=== PATIENT | female | born 1970 | race Caucasian/White ===

== ENCOUNTER → 2019-01-31 12:09 | Outpatient (CLI) | payer OTHER, MEDICAID, SELFPAY ==
--- NOTE | 2019-01-31 12:12 | DI.NM.S_ITS ---
PROCEDURE: NM BONE SCAM MULTIPLE AREAS RADIOPHARMACEUTICAL: 18.9 mCi Tc-99m MDP IV. INDICATIONS: Left rib chest wall pain TECHNIQUE: Multiple delayed bone scintigrams of the chest were obtained approximately 3 hours after intravenous injection of Tc-99m MDP. COMPARISON: None. FINDINGS: No regions of increased radiotracer uptake within the ribs, nor thoracic spine. Sternotomy per uptake is within normal limits. Kidneys are normally positioned. IMPRESSION: Negative bone scan of the chest. Dictated by: Jayro Corley M.D. on 01/31/2019 at 16:37 Approved by: Jayro Corley M.D. on 01/31/2019 at 16:39
== END ==
PROVIDERS: PCP Physician Assistant Medical; Visit Provider Physical Medicine & Rehabilitation
DX: R07.89 Other chest pain (principal); R07.81 Pleurodynia; G58.8 Other specified mononeuropathies; G89.29 Other chronic pain; M47.24 Other spondylosis with radiculopathy, thoracic region; M54.6 Pain in thoracic spine; M99.08 Segmental and somatic dysfunction of rib cage
CPT/HCPCS: 78305; A9503

== ENCOUNTER 2019-02-28 08:59 | Outpatient (CLI) | payer OTHER, MEDICAID, SELFPAY ==
[2019-02-28] VITALS (8 sets, daily range): BP systolic 104–124; BP diastolic 63–74; PULSE 58–72; RESP 14–18; TEMP 36.8; O2SAT 97–100
--- NOTE | 2019-02-28 09:00 | DI.RAD.S_ITS ---
PROCEDURE: PAIN C/T TRANFORAMINAL INJECT INDICATIONS: RADICULOPATHY FINDINGS: Fluoroscopic spot filming was performed to verify placement of spinal needles at the left T10-T11 level, as labeled on the films. Appropriate location(s) of the needle tip(s) was confirmed by injection of iodinated contrast. IMPRESSION: Left T10-T11 needle tip localization for transforaminal epidural steroid injection. Dictated by: Dallas Mancera M.D. on 02/28/2019 at 11:53 Approved by: Dallas Mancera M.D. on 02/28/2019 at 11:54
[2019-02-28] MEDS: MIDAZOLAM 5 MG/5 ML VIAL IV (09:55)
[2019-02-28] MEDS: fentaNYL 100 MCG/2 ML INJ 50 MCG IV (09:58)
[2019-02-28] MEDS: IOPAMIDOL 15 ML VIAL 3 ML INJ (10:03)
[2019-02-28] MEDS: DEXAMETHASONE 10 MG/ML VIAL 20 MG INJ (10:03)
[2019-02-28] MEDS: LIDOCAINE 1% 20 ML INJ 5 ML INJ (10:03)
--- NOTE | 2019-02-28 10:08 | PC.NURSE ---
ASSISTING PT OFF TABLE AND TRANSPORTING TO POST PROC AREA IN STABLE CONDITION
--- NOTE | 2019-02-28 10:15 | P.PCN_ITS ---
Procedures Date/Time Date of procedure: 02/28/19 Time of procedure: 10:13 General Procedure description: PREOP DIAGNOSIS 1. FORMAINAL STENOSIS WITH LE SYMPTOMS, POST OP DIAGNOSIS 1. FORMAINAL STENOSIS WITH LE SYMPTOMS, PROCEDURES 1. FLUOROSCOPICALLY GUIDED CONTRAST CONTROLLED TRANSFORAMINAL EPIDURAL STEROID INJECTION - Left T10/T11 TFESI PHYSICIAN: Ricki Guadalupe, DO INDICATIONS Karon is referred by PAC Utter for treatment of Foraminal Stenosis with left thoracic Symptoms FINDINGS Foraminal Nerve Root Compression secondary to disc disease and facet hypertrophy DESCRIPTION OF PROCEDURE Following denial of allergy and review of potential side effects and complications, including, but not necessarily limited to, infection, allergic reaction, local tissue breakdown, stroke, temporary or permanent nerve injury, paralysis, and possible , the patient indicated that the patient understood and agreed to proceed. An informed consent document was signed by the patient, witnessed by a nurse, and placed in the patient's chart. Additionally, other treatment options including medications, modalities, and physical therapy were reviewed with the patient. After review of previous anaesthesic history and IV conscious sedation the patient was deemed safe to proceed with todays procedure with IV conscious sedation as ASA class II designation. Safety time-out was performed to confirm patient ID, procedure to be performed and site of procedure. IV sedation was accomplished with a combination of 3mg of Versed of 50mcg Fentanyl was administered by the RN after DO order, titrated to patient comfort during the course of the procedure while the patient remained responsive to all verbal commands In the prone position following sterile prep and drape of the lumbar region, the left T10/T11 posterior neuroforamen was identified fluoroscopically. The skin was anesthetized via a 25-gauge 1.5-inch needle with 1% lidocaine solution. At this point, a 25-gauge 3.5-inch spinal needle was atraumatically introduced and advanced under fluoroscopic guidance through the posterior left T10/T11 neuroforamen to approximately the anterior aspect of the canal. Depth was confirmed on lateral view. Following negative aspiration, injection of approximately 1.5 cc of Isovue 200 under live fluoroscopy in the AP view confirmed excellent flow along the nerve root, into the epidural space without vascular or intrathecal uptake observed Radiological data, including multiple fluoroscopic views reveal the needle placement in the left T10/T11 posterior neuroforamen. Subsequent views show flow of contrast material flowing superiorly and inferiorly along the nerve root confirming epidural flow. Subsequently, a test dose of 1.5 cc of 1% lidocaine solution was administered and patient was observed for signs or symptoms of complications, including abdominal pain, shortness of breath, bilateral upper or lower extremity weakness, nausea and vomiting, prior to steroid injection. At this point, a total of 2cc or 20mg of dexamethasone was injected without incident. The procedure tolerated the procedure well without signs or symptoms of complications prior to transfer to the recovery area continued monitoring without incident.The patient was then transferred to the recovery area where they were observed for an appropriate time after the injection. The patient reported a VAS score of 7 prior to the procedure and a post- procedure VAS of 0. Total Fluoroscopy Time: 17.3 seconds Total Conscious Sedation Time: 24min POST OP INSTRUCTIONS The patient was provided a Pain Log to continue to record their response to the target-specific procedure prior to follow-up visit with their referring physician. Additionally, specific post-injection care instructions and a contact number to our office were provided if concerns arise regarding possible complications associated with the procedure are suspected. Ricki Guadalupe DO Complications: none
--- NOTE | 2019-02-28 11:01 | PC.NURSE ---
pt returned from procedure awake and alert, able to move from W/C to chair with standby assist. Resumed monitoring from Kasey HOLLIDAY.
== END 2019-02-28 10:55 ==
LOC: RAD 08:59
PROVIDERS: PCP Physician Assistant Medical; Visit Provider Physical Medicine & Rehabilitation
DX: M48.04 Spinal stenosis, thoracic region (principal); M51.14 Intervertebral disc disorders with radiculopathy, thoracic region; M47.24 Other spondylosis with radiculopathy, thoracic region; G58.8 Other specified mononeuropathies; G89.29 Other chronic pain
CPT/HCPCS: 64479; 99152; J1100; J2250; J3010

== ENCOUNTER 2019-07-19 10:25 | Outpatient (CLI) | payer OTHER, MEDICAID, SELFPAY ==
[2019-07-19] VITALS (7 sets, daily range): BP systolic 104–124; BP diastolic 63–76; PULSE 59–65; RESP 16; TEMP 36.9; O2SAT 98–100
--- NOTE | 2019-07-19 10:27 | DI.RAD.S_ITS ---
PROCEDURE: PAIN C/T TRANFORAMINAL INJECT INDICATIONS: SPONDYLOSIS FINDINGS: Fluoroscopic spot filming was performed to verify placement of spinal needles at the T10-T11 level(s), as labeled on the films. Appropriate location(s) of the needle tip(s) was confirmed by injection of iodinated contrast. IMPRESSION: Fluoroscopy for pain management. Dictated by: Jaimee Katz M.D. on 07/19/2019 at 12:56 Approved by: Jaimee Katz M.D. on 07/19/2019 at 12:57
[2019-07-19] MEDS: MIDAZOLAM 5 MG/5 ML VIAL IV (11:24)
[2019-07-19] MEDS: fentaNYL 100 MCG/2 ML INJ 50 MCG IV (11:24)
[2019-07-19] MEDS: DEXAMETHASONE 10 MG/ML VIAL 30 MG INJ (11:31)
[2019-07-19] MEDS: BUPIVACAINE 0.25% (PF) VIAL 2 ML INJ (11:31)
[2019-07-19] MEDS: IOPAMIDOL 15 ML VIAL 3 ML INJ (11:31)
--- NOTE | 2019-07-19 11:34 | PC.NURSE ---
ASSISTING PT OFF TABLE AND TRANSPORTING TO POST PROC AREA IN STABLE CONDITION
--- NOTE | 2019-07-19 11:39 | P.PCN_ITS ---
Procedures Date/Time Date of procedure: 07/19/19 Time of procedure: 11:39 General Procedure description: Procedure description: PREOP DIAGNOSIS 1. FORMAINAL STENOSIS WITH LE SYMPTOMS, POST OP DIAGNOSIS 1. FORMAINAL STENOSIS WITH LE SYMPTOMS, PROCEDURES 1. FLUOROSCOPICALLY GUIDED CONTRAST CONTROLLED TRANSFORAMINAL EPIDURAL STEROID INJECTION - Left T10/T11 TFESI PHYSICIAN: Ricki Guadalupe, DO INDICATIONS Karon is referred by PAC Utter for treatment of Foraminal Stenosis with left thoracic radiculopathy FINDINGS Foraminal Nerve Root Compression secondary to disc disease and facet hypertrophy DESCRIPTION OF PROCEDURE Following denial of allergy and review of potential side effects and complications, including, but not necessarily limited to, infection, allergic reaction, local tissue breakdown, stroke, temporary or permanent nerve injury, paralysis, and possible , the patient indicated that the patient understood and agreed to proceed. An informed consent document was signed by the patient, witnessed by a nurse, and placed in the patient's chart. Additionally, other treatment options including medications, modalities, and physical therapy were reviewed with the patient. After review of previous anaesthesic history and IV conscious sedation the patient was deemed safe to proceed with todays procedure with IV conscious sedation as ASA class II designation. Safety time-out was performed to confirm patient ID, procedure to be performed and site of procedure. IV sedation was accomplished with a combination of 2mg of Versed of 50mcg Fentanyl was administered by the RN after DO order, titrated to patient comfort during the course of the procedure while the patient remained responsive to all verbal commands In the prone position following sterile prep and drape of the lumbar region, the left T10/T11 posterior neuroforamen was identified fluoroscopically. The skin was anesthetized via a 25-gauge 1.5-inch needle with 1% lidocaine solution. At this point, a 25-gauge 3.5-inch spinal needle was atraumatically introduced and advanced under fluoroscopic guidance through the posterior left T10/T11 neuroforamen to approximately the anterior aspect of the canal. Depth was confirmed on lateral view. Following negative aspiration, injection of approximately 1.5 cc of Isovue 200 under live fluoroscopy in the AP view confirmed excellent flow along the nerve root, into the epidural space without vascular or intrathecal uptake observed Radiological data, including multiple fluoroscopic views reveal the needle placement in the left T10/T11 posterior neuroforamen. Subsequent views show flow of contrast material flowing superiorly and inferiorly along the nerve root confirming epidural flow. Subsequently, a test dose of 1.5 cc of 1% lidocaine solution was administered and patient was observed for signs or symptoms of complications, including abdominal pain, shortness of breath, bilateral upper or lower extremity weakness, nausea and vomiting, prior to steroid injection. At this point, a total of 3cc or 30mg of dexamethasone was injected without incident. The procedure tolerated the procedure well without signs or symptoms of complications prior to transfer to the recovery area continued monitoring without incident.The patient was then transferred to the recovery area where they were observed for an appropriate time after the injection. The patient reported a VAS score of 7 prior to the procedure and a post- procedure VAS of 0. Total Fluoroscopy Time: 17.3 seconds Total Conscious Sedation Time: 24min POST OP INSTRUCTIONS The patient was provided a Pain Log to continue to record their response to the target-specific procedure prior to follow-up visit with their referring physician. Additionally, specific post-injection care instructions and a contact number to our office were provided if concerns arise regarding possible complications associated with the procedure are suspected. Ricki Guadalupe DO Complications: none Complications: none
--- NOTE | 2019-07-19 11:58 | PC.NURSE ---
Patient returned via w/c post procedure. Patient is alert ahnd able to gety from w/c nto chair with standby assist. monitoring resumed by MG Cramer
== END 2019-07-19 12:01 ==
LOC: RAD 10:26
PROVIDERS: PCP Physician Assistant Medical; Visit Provider Physical Medicine & Rehabilitation
DX: M48.04 Spinal stenosis, thoracic region (principal); M51.14 Intervertebral disc disorders with radiculopathy, thoracic region; M47.24 Other spondylosis with radiculopathy, thoracic region
CPT/HCPCS: 64479; 99152; J1100; J2250; J3010

== ENCOUNTER → 2019-09-12 13:18 | Outpatient (CLI) | payer OTHER, MEDICAID, SELFPAY ==
--- NOTE | 2019-09-12 | DI.US.S_ITS ---
PROCEDURE: US SOFT TISSUE HEAD AND NECK INDICATIONS: LOCALIZED SWELLING, MASS, AND LUMP, NECK TECHNIQUE: Real-time scanning was performed of the neck region of interest, with image documentation. COMPARISON: None. FINDINGS: Morphologically normal appearing right neck lymph node otherwise no fluid collection or mass is seen. Normal appearance of the right submandibular gland which is over the region of concern. IMPRESSION: No abnormal mass or fluid collections visualized. Dictated by: Naif STOKES Interpreted: Logan Tavarez MD on 09/12/2019 at 14:58 Approved by: Logan Tavarez M.D. on 09/13/2019 at 11:27
--- NOTE | 2019-10-31 08:54 | ONC.MSW ---
Description: Initial Referral Navigation Activity: RN URGENT CARE reviewed referral for urgency/acuity, forwarded on to scheduling for next available initial consult time.
== END ==
PROVIDERS: PCP Physician Assistant Medical; Visit Provider Family Medicine
DX: R22.1 Localized swelling, mass and lump, neck (principal)
CPT/HCPCS: 76536

== ENCOUNTER → 2020-06-26 12:40 | Oncology outpatient (ONC) | payer OTHER, MEDICAID, SELFPAY ==
--- NOTE | 2019-12-11 15:39 | P.CONONC_ITS ---
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 She was referred here for evaluation of mildly elevated total white blood cell count and neutrophil count. Patient said that she first became aware of the elevated white blood cell count was almost about 10 years ago. Recently she was having neck swelling after swimming 4 months ago. No sore throat. No fever. She is complaining of warm night sweats, but she does not have to change clothes. No weight loss. She is still smoking and she is planning to quit this month. No abd fullness. Lab tests on 07/09/2019: WBC 12.9, HGB 13.3, HCT 39.7, PLT 266; on 10/19/2019 showed WBC 12.8, hemoglobin 13.5, hematocrit 36.4, platelets 285, absolute neutrophil count 9.5. CC: Aneudy Villarreal MD Home Medications and Allergies Home Medications Medication Instructions Recorded Confirmed Type baclofen 10 mg tablet 10 mg PO ONCE PRN tab 05/31/19 05/31/19 History oxycodone-acetaminophen 5 mg-325 1 tab PO Q4-6H PRN 05/31/19 05/31/19 History mg tablet Tumeric 300 mg PO BID 08/13/19 History multivitamin 1 tab PO DAILY 08/13/19 08/13/19 History Allergies Allergy/AdvReac Type Severity Reaction Status Date / Time Sulfa (Sulfonamide Allergy Mild hives Verified 08/13/19 13:14 Antibiotics) [SULFA (SULFONAMIDE ANTIBIOTICS)] Medical History - Medical, Surgical, Family History Medical History: Medical History (Last Updated 12/11/19 @ 15:51 by Aneudy Villarreal MD) 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 Surgical History: Surgical History (Last Updated 12/11/19 @ 15:52 by Aneudy Villarreal MD) H/O removal of cyst Family History: Family History (Last Updated 12/11/19 @ 15:52 by Aneudy Villarreal MD) Other Adopted - Social History Smoking Status: Current every day smoker (1/2 PPD X 35 Y) Review of Systems All systems PM: reviewed and no additional remarkable complaints except as stated Exam Vital signs: Last Vital Signs Temp 98.7 F 12/11/19 15:45 Pulse 72 12/11/19 15:45 Resp 16 12/11/19 15:45 BP 127/89 12/11/19 15:45 Pulse Ox 99 12/11/19 15:45 ECOG 1 Narrative: Gen: WDWN, NAD, pleasant and cooperative. HEENT: NCAT, EOMI, PERRLA, anicteric sclera. Neck: Supple, No palpable thyromegaly or lymphadenopathy. Respiratory: CTAB, no wheezes audible. No JVD Cardiovascular: RRR, S1 and S2 normal, no M/G/R. Abdomen: Soft, NTND, BS normal, no palpable organomegaly Extremities: No LE pitting edema. Lymphatic: no palpable lymph nodes in the neck, axillae, or groins. Neurological: AOx3, CN II-XII grossly intact. No focal motor or sensory deficit. Psychiatric: Seems to be anxious. But in good mood. Normal affect. Results - Labs Laboratory Last Values WBC 9.1 X10^3/uL (4.5-11.0) 12/11/19 16:15 RBC 4.33 X10^6/uL (4.0-5.2) 12/11/19 16:15 Hgb 13.9 g/dL (12.0-16.0) 12/11/19 16:15 Hct 40.0 % (36-46) 12/11/19 16:15 MCV 92.3 fL (80-100) 12/11/19 16:15 MCH 32.0 PG (26-34) 12/11/19 16:15 MCHC 34.7 % (30-36) 12/11/19 16:15 RDW 12.8 % (11.6-14.8) 12/11/19 16:15 Plt Count 254 X10^3/uL (150-400) 12/11/19 16:15 Neut % (Auto) 51.8 % (50-75) 12/11/19 16:15 Lymph % (Auto) 40.0 % (25-40) 12/11/19 16:15 Dewitt % (Auto) 6.6 % (3-14) 12/11/19 16:15 Eos % (Auto) 1.1 % (2-4) L 12/11/19 16:15 Baso % (Auto) 0.5 % (0-2) 12/11/19 16:15 Neut # (Auto) 4700 /uL (5455-2441) 12/11/19 16:15 Lymph # (Auto) 3600 /uL (2691-6908) 12/11/19 16:15 Dewitt # (Auto) 600 /uL (0-900) 12/11/19 16:15 Eos # (Auto) 100 /uL (0-450) 12/11/19 16:15 Baso # (Auto) 0 /uL (0-100) 12/11/19 16:15 Sodium 138 mmol/L (137-145) 12/11/19 16:15 Potassium 4.0 mmol/L (3.4-5.1) 12/11/19 16:15 Chloride 103 mmol/L (98-107) 12/11/19 16:15 Carbon Dioxide 28 mmol/L (22-32) 12/11/19 16:15 BUN 19 mg/dL (7-17) H 12/11/19 16:15 Creatinine 0.80 mg/dL (0.52-1.04) 12/11/19 16:15 Estimated GFR > 60.0 mL/min (>60) 12/11/19 16:15 BUN/Creatinine Ratio 23.8 (6-22) H 12/11/19 16:15 Glucose 100 mg/dL (70-100) 12/11/19 16:15 Calcium 9.2 mg/dL (8.4-10.2) 12/11/19 16:15 Total Bilirubin 0.3 mg/dL (0.2-1.3) 12/11/19 16:15 AST 25 IU/L (14-36) 12/11/19 16:15 ALT 20 IU/L (<35) 12/11/19 16:15 Alkaline Phosphatase 53 U/L (38-126) 12/11/19 16:15 Lactate Dehydrogenase 367 U/L (313-618) 12/11/19 16:15 Total Protein 7.5 g/dL (6.3-8.2) 12/11/19 16:15 Albumin 4.4 g/dL (3.5-5.0) 12/11/19 16:15 Globulin 3.1 g/dL (1.7-4.1) 12/11/19 16:15 Albumin/Globulin Ratio 1.4 (1.0-2.8) 12/11/19 16:15 Assessment and Plan (1) Leukocytosis Overview: 49-year-old female with leukocytosis of unknown etiology. Assessment I explained to the patient that the leukocytosis most likely is reactive to other medical conditions. Patient admitted that the first time she was aware of the leukocytosis was almost 10 years ago at the same time when she was diagnosed with intercostal neuralgia. She said that the pain has been present for the last 10 years and she has been using chronic narcotics for the pain control. I talked with her that the pain certainly can cause slightly elevated white blood cell count. Other conditions for example depression or smoking also can elevate the white blood cell count. I talked with her that I will repeat the test first Plan: CBC,CMP, LDH RTC in one month, CBC.
[2019-12-11 15:45] VITALS: BP 127/89; PULSE 72; RESP 16; TEMP 37.1; O2SAT 99
[2019-12-11 16:53] LABS: Add Manual Diff / Slide Review NO; Basophils Absolute Auto 0 /uL (0-100); Basophils Percent Auto 0.5 % (0-2); Eosinophils Absolute Auto 100 /uL (0-450); Eosinophils Percent Auto 1.1 % (2-4); Hemoglobin 13.9 g/dL (12.0-16.0); Lymphocytes Absolute Auto 3600 /uL (1100-4500); Mean Corpuscular HGB Conc 34.7 % (30-36); Mean Corpuscular Volume 92.3 fL (80-100); Monocytes Absolute Auto 600 /uL (0-900); Monocytes Percent Auto 6.6 % (3-14); Neutrophils Absolute Auto 4700 /uL (1500-7000); Neutrophils Percent Auto 51.8 % (50-75); Platelet Count 254 X10^3/uL (150-400); Red Blood Cell Count 4.33 X10^6/uL (4.0-5.2); Red Cell Distribution Width 12.8 % (11.6-14.8); White Blood Cell Count 9.1 X10^3/uL (4.5-11.0)
[2019-12-11 17:01] LABS: Alanine Aminotransferase 20 IU/L (<35); Albumin 4.4 g/dL (3.5-5.0); Albumin Globulin Ratio 1.4 (1.0-2.8); Alkaline Phosphatase 53 U/L (38-126); Aspartate Aminotransferase 25 IU/L (14-36); BUN Creatinine Ratio 23.8 (6-22); Bilirubin Total 0.3 mg/dL (0.2-1.3); Blood Urea Nitrogen 19 mg/dL (7-17); Calcium 9.2 mg/dL (8.4-10.2); Carbon Dioxide 28 mmol/L (22-32); Chloride 103 mmol/L (98-107); Estimated Glomerular Filt Rate > 60.0 mL/min (>60); Globulin 3.1 g/dL (1.7-4.1); Glucose 100 mg/dL (70-100); HEMOLYSIS < 15 (0-50); Lactate Dehydrogenase 367 U/L (313-618); Total Protein 7.5 g/dL (6.3-8.2)
[2019-12-11 17:05] LABS: Sodium 138 mmol/L (137-145)
--- NOTE | 2020-04-24 15:22 | PC.NURSE ---
Returned pt's phone call after left VM on triage line. Pt expresses concern stating :I think I have Lymphoma. Pt reports swelling to lymph nodes R>L, terrible night sweats and increased fatigue. According to pt she recently had tele med appt with PCP and PCP would like her to have COVID testing. Per pt she will have testing completed tomorrow. Pt currently has appt scheduled for 05/29 but would like to be seen sooner of possible. This RN notified Dr. Villarreal of pt symptoms and concerns. Labs ordered per Dr. Villarreal. Pt would like to have labs drawn on [place], where she resides. Ordered faxed to [facility] and requesting results faxed back to this clinic. Pt agreeable to plan and will have labs drawn tomorrow. Pt agrees to seek immediate medical attention for chest pain, SOB, or any other related medical emergency.
--- NOTE | 2020-06-23 11:25 | PC.NURSE ---
Pt called to have labs sent to [facility]. Labs for CBC, CMP, LDH, and Beta-microglopbulin faxed to Will await faxed lab report
--- NOTE | 2020-06-26 12:27 | P.PNONC_ITS ---
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 She was referred here for evaluation of mildly elevated total white blood cell count and neutrophil count. Patient said that she first became aware of the elevated white blood cell count was almost about 10 years ago. Lab tests on 07/09/2019: WBC 12.9, HGB 13.3, HCT 39.7, PLT 266; on 10/19/2019 showed WBC 12.8, hemoglobin 13.5, hematocrit 36.4, platelets 285, absolute neutrophil count 9.5. When she was seen here in November 2019, lab tests showed wbc 9.1, hemoglobin 13.9, and hematocrit 40 with platelet counts 254. She presents here today for scheduled follow-up visit. Clinically patient does not have any new signs or symptoms. Especially she denies fever or chills. No nausea no vomiting. No shortness breath no chest pain. No abdominal pain, no diarrhea and no cons tipation. She has a lab test on 06/24/2020. It showed normal CBC with WBC 8.3, hemoglobin 13.2, hematocrit 40.4, platelets 259. - Additional ROS All systems PM: reviewed and no additional remarkable complaints except as stated Home Medications and Allergies Home Medications Medication Instructions Recorded Confirmed Type baclofen 10 mg tablet 10 mg PO ONCE PRN tab 05/31/19 06/26/20 History Tumeric 300 mg PO BID 08/13/19 06/26/20 History multivitamin 1 tab PO DAILY 08/13/19 06/26/20 History Allergies Allergy/AdvReac Type Severity Reaction Status Date / Time Sulfa (Sulfonamide Allergy Mild hives Verified 08/13/19 13:14 Antibiotics) [SULFA (SULFONAMIDE ANTIBIOTICS)] Exam Vital signs: 06/26/20 14:23 Last Vital Signs Temp 98.2 F 06/26/20 13:16 Pulse 75 06/26/20 13:16 Resp 18 06/26/20 13:16 BP 125/74 06/26/20 13:16 Pulse Ox 99 06/26/20 13:16 - Constitutional positive no acute distress, positive obese, positive cooperative - Routine HEENT Exam Head: Present: normocephalic, atraumatic Eye: Present: EOMI, PERRL, normal accommodation. Absent: conjunctival icterus - Routine Neck Exam Present: supple. Absent: lymphadenopathy, thyromegaly - Routine Chest/Breast/Axilla Exam Axillae: Absent: lymphadenopathy - Routine Respiratory Exam Present: Clear to auscultation bilaterally. Absent: rales, wheezes - Routine Cardiovascular Exam Present: RRR, S1, S2. Absent: murmur, gallop, rubs - Routine Abdominal Exam Present: soft. Absent: tenderness, distended, organomegaly - Routine Extremities Exam Absent: edema - Routine Neurological Exam Present: alert, oriented X3, CN II-XII intact. Absent: sensory deficit, motor deficit - Routine Psychiatric Exam Present: normal affect Results - Labs Laboratory Last Values WBC 9.1 X10^3/uL (4.5-11.0) 12/11/19 16:15 RBC 4.33 X10^6/uL (4.0-5.2) 12/11/19 16:15 Hgb 13.9 g/dL (12.0-16.0) 12/11/19 16:15 Hct 40.0 % (36-46) 12/11/19 16:15 MCV 92.3 fL (80-100) 12/11/19 16:15 MCH 32.0 PG (26-34) 12/11/19 16:15 MCHC 34.7 % (30-36) 12/11/19 16:15 RDW 12.8 % (11.6-14.8) 12/11/19 16:15 Plt Count 254 X10^3/uL (150-400) 12/11/19 16:15 Neut % (Auto) 51.8 % (50-75) 12/11/19 16:15 Lymph % (Auto) 40.0 % (25-40) 12/11/19 16:15 Mcdowell % (Auto) 6.6 % (3-14) 12/11/19 16:15 Eos % (Auto) 1.1 % (2-4) L 12/11/19 16:15 Baso % (Auto) 0.5 % (0-2) 12/11/19 16:15 Neut # (Auto) 4700 /uL (6389-0453) 12/11/19 16:15 Lymph # (Auto) 3600 /uL (8125-2092) 12/11/19 16:15 Mcdowell # (Auto) 600 /uL (0-900) 12/11/19 16:15 Eos # (Auto) 100 /uL (0-450) 12/11/19 16:15 Baso # (Auto) 0 /uL (0-100) 12/11/19 16:15 Sodium 138 mmol/L (137-145) 12/11/19 16:15 Potassium 4.0 mmol/L (3.4-5.1) 12/11/19 16:15 Chloride 103 mmol/L (98-107) 12/11/19 16:15 Carbon Dioxide 28 mmol/L (22-32) 12/11/19 16:15 BUN 19 mg/dL (7-17) H 12/11/19 16:15 Creatinine 0.80 mg/dL (0.52-1.04) 12/11/19 16:15 Estimated GFR > 60.0 mL/min (>60) 12/11/19 16:15 BUN/Creatinine Ratio 23.8 (6-22) H 12/11/19 16:15 Glucose 100 mg/dL (70-100) 12/11/19 16:15 Calcium 9.2 mg/dL (8.4-10.2) 12/11/19 16:15 Total Bilirubin 0.3 mg/dL (0.2-1.3) 12/11/19 16:15 AST 25 IU/L (14-36) 12/11/19 16:15 ALT 20 IU/L (<35) 12/11/19 16:15 Alkaline Phosphatase 53 U/L (38-126) 12/11/19 16:15 Lactate Dehydrogenase 367 U/L (313-618) 12/11/19 16:15 Total Protein 7.5 g/dL (6.3-8.2) 12/11/19 16:15 Albumin 4.4 g/dL (3.5-5.0) 12/11/19 16:15 Globulin 3.1 g/dL (1.7-4.1) 12/11/19 16:15 Albumin/Globulin Ratio 1.4 (1.0-2.8) 12/11/19 16:15 Assessment and Plan (1) Leukocytosis Overview: 50-year-old female with leukocytosis of unknown etiology. Assessment I reviewed the lab results from 06/24/2020. The CBCs showed that white cell count was 8.3. Hemoglobin and hematocrit level are also within the normal range. I explained to the patient that twice tests have showed normal CBCs. The previous one was in November 2019 in our hospital. Given the 2 normal results, I talked with her that I think she does not have any hematological disorders. I will have her continue follow-up her primary care provider. If there is any thing new, she needs to call us for a follow-up visit. She voiced understanding. Plan: RTC HOSEAN
[2020-06-26 13:16] VITALS: BP 125/74; PULSE 75; RESP 18; TEMP 36.8; O2SAT 99
== END ==
PROVIDERS: PCP Physician Assistant Medical; Visit Provider Internal Medicine Hematology & Oncology
DX: D72.829 Elevated white blood cell count, unspecified (principal); G58.8 Other specified mononeuropathies
CPT/HCPCS: 36415; 80053; 83615; 85025; 99204; 99214

== ENCOUNTER → 2021-06-08 10:13 | Outpatient (CLI) | payer OTHER, MEDICAID, SELFPAY ==
[2021-06-08 21:15] LABS: COVID19 - ORCAS (NP or Nasal) Negative (Negative)
== END ==
PROVIDERS: PCP Physician Assistant Medical; Visit Provider Family Medicine
DX: Z20.822 Contact with and (suspected) exposure to COVID-19 (principal)
CPT/HCPCS: U0003

== ENCOUNTER → 2021-08-13 10:54 | Outpatient (CLI) | payer SELFPAY ==
[2021-08-13 21:17] LABS: Hepatitis B Surface Antigen NEGATIVE s/c (NEGATIVE)
[2021-08-13 21:32] LABS: HIV 1 & 2 Ab/Ag 4th Gen Combo NEGATIVE (NEGATIVE); Hep C Virus Ab w/Reflex Quant NEGATIVE s/c (NEGATIVE)
== END ==
PROVIDERS: PCP Physician Assistant Medical
DX: Z77.21 Contact with and (suspected) exposure to potentially hazardous body fluids (principal); W46.0XXA Contact with hypodermic needle, initial encounter
CPT/HCPCS: 86803; 87340; 87389

== ENCOUNTER → 2021-11-25 07:59 | Outpatient (CLI) | payer OTHER, MEDICAID, SELFPAY ==
[2021-11-25 18:43] LABS: Appearance Urine UA CLEAR; Bilirubin Urine UA NEGATIVE (NEGATIVE); Color Urine UA YELLOW; Glucose Urine UA NEGATIVE (Negative); Ketones Urine UA NEGATIVE (NEGATIVE); Leukocyte Esterase Urine UA NEGATIVE (NEGATIVE); Nitrite Urine UA NEGATIVE (Negative); Occult Blood Urine UA TRACE-LYSED (Negative); Protein Urine UA NEGATIVE (Negative); Specific Gravity Urine UA >=1.030 (1.000-1.035); Urobilinogen Urine UA 0.2 E.U./dL (0.2)
[2021-11-25 19:19] LABS: Add Manual Diff / Slide Review NO; Basophils Absolute Auto 100 /uL (0-100); Basophils Percent Auto 0.8 % (0-2); Eosinophils Absolute Auto 100 /uL (0-450); Hematocrit 39.4 % (36-46); Hemoglobin 13.7 g/dL (12.0-16.0); Lymphocytes Absolute Auto 2900 /uL (1100-4500); Lymphocytes Percent Auto 37.9 % (25-40); Mean Corpuscular HGB Conc 34.7 % (30-36); Mean Corpuscular Hemoglobin 30.9 PG (26-34); Mean Corpuscular Volume 89.1 fL (80-100); Monocytes Absolute Auto 500 /uL (0-900); Monocytes Percent Auto 6.6 % (3-14); Neutrophils Absolute Auto 4000 /uL (1500-7000); Neutrophils Percent Auto 53.7 % (50-75); Platelet Count 225 X10^3/uL (150-400); Red Blood Cell Count 4.42 X10^6/uL (4.0-5.2); Red Cell Distribution Width 13.6 % (11.6-14.8); White Blood Cell Count 7.5 X10^3/uL (4.5-11.0)
[2021-11-25 19:24] LABS: Alanine Aminotransferase 39 IU/L (<35); Albumin 4.1 g/dL (3.5-5.0); Albumin Globulin Ratio 1.6 (1.0-2.8); Alkaline Phosphatase 60 U/L (38-126); Aspartate Aminotransferase 35 IU/L (14-36); BUN Creatinine Ratio 24.1 (6-22); Bilirubin Total 0.4 mg/dL (0.2-1.3); Blood Urea Nitrogen 20 mg/dL (7-17); Calcium 9.5 mg/dL (8.4-10.2); Carbon Dioxide 30 mmol/L (22-32); Chloride 104 mmol/L (98-107); Cholesterol 249 mg/dL (140-199); Estimated Glomerular Filt Rate > 60.0 mL/min (>60); Globulin 2.5 g/dL (1.7-4.1); Glucose 91 mg/dL (70-100); HDL Cholesterol 63 mg/dL (40-60); HEMOLYSIS < 15 (0-50); LDL Cholesterol Calculated 166 mg/dL (<100); Magnesium 2.1 mg/dL (1.6-2.3); Potassium 4.5 mmol/L (3.4-5.1); Sodium 137 mmol/L (137-145); Total Protein 6.6 g/dL (6.3-8.2); Triglycerides 102 mg/dL (35-150)
[2021-11-25 19:32] LABS: TSH w/ Reflex to FT4 1.73 uIU/mL (0.47-4.68)
[2021-11-26 17:17] LABS: Vitamin D 25 Hydroxy (D3) 25.2 ng/mL (30.0-100.0)
== END ==
PROVIDERS: PCP Physician Assistant Medical; Visit Provider Physician Assistant Medical
DX: G89.29 Other chronic pain (principal); M54.6 Pain in thoracic spine; M62.838 Other muscle spasm; Z79.891 Long term (current) use of opiate analgesic; D72.829 Elevated white blood cell count, unspecified; Z12.11 Encounter for screening for malignant neoplasm of colon; N23 Unspecified renal colic; M79.605 Pain in left leg; M79.604 Pain in right leg
CPT/HCPCS: 80053; 80061; 81003; 82306; 83735; 84443; 85025

== ENCOUNTER → 2021-12-01 12:09 | Outpatient (CLI) | payer OTHER, MEDICAID, SELFPAY ==
--- NOTE | 2021-12-01 12:11 | DI.US.S_ITS ---
PROCEDURE: US PERIPH VENOUS LOW EXTREM BI INDICATIONS: B leg pain/swelling since covid vaccine TECHNIQUE: Real-time imaging, as well as color and pulse Doppler interrogation, were performed of the deep veins of both legs from the inguinal ligament to the popliteal fossa. COMPARISON: None. FINDINGS: Right: The common femoral, femoral and popliteal veins are normally compressible, and free of intraluminal thrombus. Color and pulse Doppler demonstrate normal phasic intravascular flow. There is normal augmentation response to distal compression maneuver. Left: The common femoral, femoral and popliteal veins are normally compressible, and free of intraluminal thrombus. Color and pulse Doppler demonstrate normal phasic intravascular flow. There is normal augmentation response to distal compression maneuver. IMPRESSION: Negative for deep venous thrombosis. Dictated by: Dameon Walls M.D. on 12/01/2021 at 12:45 Approved by: Dameon Walls M.D. on 12/01/2021 at 12:45
== END ==
PROVIDERS: PCP Physician Assistant Medical; Referring Provider Physician Assistant Medical; Visit Provider Physician Assistant Medical
DX: N23 Unspecified renal colic (principal); M79.604 Pain in right leg; M79.605 Pain in left leg; Z79.891 Long term (current) use of opiate analgesic; M62.838 Other muscle spasm; M54.6 Pain in thoracic spine; G89.29 Other chronic pain
CPT/HCPCS: 93970

== ENCOUNTER → 2021-12-08 11:26 | Outpatient (CLI) | payer OTHER, MEDICAID, SELFPAY ==
[2021-12-10 08:52] LABS: Fecal Immunochemical Test Negative (Negative)
== END ==
PROVIDERS: PCP Physician Assistant Medical; Referring Provider Physician Assistant Medical; Visit Provider Physician Assistant Medical
DX: N23 Unspecified renal colic (principal); Z12.11 Encounter for screening for malignant neoplasm of colon
CPT/HCPCS: 82274

== ENCOUNTER → 2022-05-05 11:19 | Outpatient (CLI) | payer OTHER, MEDICAID, SELFPAY ==
--- NOTE | 2022-05-05 11:21 | DI.RAD.S_ITS ---
PROCEDURE: XR THORACIC SPINE 3V INDICATIONS: THORACIC PAIN TECHNIQUE: 3 views of the thoracic spine were acquired. COMPARISON: None. FINDINGS: Bones: No fractures or dislocations. No suspicious bony lesions. Degenerative endplate changes are noted throughout thoracic spine. 12 pairs of ribs are noted, and appear intact where visualized. Soft tissues: No paravertebral stripe thickening. IMPRESSION: Mild degenerative disc disease throughout thoracic spine. No acute compression fracture or spondylolisthesis. Dictated by: Logan Tavarez M.D. on 05/05/2022 at 11:54 Approved by: Logan Tavarez M.D. on 05/05/2022 at 12:01
== END ==
PROVIDERS: PCP Physician Assistant Medical; Referring Provider Physical Medicine & Rehabilitation; Visit Provider Physical Medicine & Rehabilitation
DX: M51.34 Other intervertebral disc degeneration, thoracic region (principal); M99.08 Segmental and somatic dysfunction of rib cage; G89.29 Other chronic pain
CPT/HCPCS: 72072; 99214

== ENCOUNTER → 2022-06-23 09:31 | Outpatient (CLI) | payer OTHER, MEDICAID, SELFPAY ==
[2022-06-23 19:45] LABS: Add Manual Diff / Slide Review NO; Basophils Absolute Auto 100 /uL (0-100); Basophils Percent Auto 0.8 % (0-2); Eosinophils Absolute Auto 100 /uL (0-450); Eosinophils Percent Auto 1.4 % (2-4); Hematocrit 41.3 % (36-46); Hemoglobin 13.9 g/dL (12.0-16.0); Lymphocytes Absolute Auto 2900 /uL (1100-4500); Lymphocytes Percent Auto 38.4 % (25-40); Mean Corpuscular HGB Conc 33.7 % (30-36); Mean Corpuscular Hemoglobin 30.4 PG (26-34); Mean Corpuscular Volume 90.1 fL (80-100); Monocytes Absolute Auto 600 /uL (0-900); Monocytes Percent Auto 7.5 % (3-14); Neutrophils Absolute Auto 3900 /uL (1500-7000); Neutrophils Percent Auto 51.9 % (50-75); Platelet Count 239 X10^3/uL (150-400); Red Blood Cell Count 4.58 X10^6/uL (4.0-5.2); Red Cell Distribution Width 13.6 % (11.6-14.8); White Blood Cell Count 7.6 X10^3/uL (4.5-11.0)
[2022-06-23 19:46] LABS: Appearance Urine UA CLEAR; Bilirubin Urine UA NEGATIVE (NEGATIVE); Color Urine UA YELLOW; Glucose Urine UA TRACE g/dL (Negative); Ketones Urine UA NEGATIVE (NEGATIVE); Leukocyte Esterase Urine UA NEGATIVE (NEGATIVE); Nitrite Urine UA NEGATIVE (Negative); Occult Blood Urine UA 2+ (Negative); Protein Urine UA TRACE (Negative); Specific Gravity Urine UA >=1.030 (1.000-1.035); Urobilinogen Urine UA 0.2 E.U./dL (0.2)
[2022-06-23 20:12] LABS: Alanine Aminotransferase 20 IU/L (<35); Albumin 4.2 g/dL (3.5-5.0); Albumin Globulin Ratio 1.6 (1.0-2.8); Alkaline Phosphatase 73 U/L (38-126); Aspartate Aminotransferase 28 IU/L (14-36); BUN Creatinine Ratio 26.7 (6-22); Bilirubin Total 0.3 mg/dL (0.2-1.3); Blood Urea Nitrogen 20 mg/dL (7-17); Calcium 9.4 mg/dL (8.4-10.2); Carbon Dioxide 28 mmol/L (22-32); Chloride 105 mmol/L (98-107); Cholesterol 229 mg/dL (140-199); Estimated Glomerular Filt Rate > 60 mL/min (>60); Gamma Glutamyl Transpeptidase 17 U/L (12-43); Globulin 2.6 g/dL (1.7-4.1); Glucose 103 mg/dL (70-100); HDL Cholesterol 66 mg/dL (40-60); HEMOLYSIS < 15 (0-50); LDL Cholesterol Calculated 147 mg/dL (<100); Potassium 4.4 mmol/L (3.4-5.1); Sodium 138 mmol/L (137-145); Total Protein 6.8 g/dL (6.3-8.2); Triglycerides 82 mg/dL (35-150)
[2022-06-23 20:21] LABS: TSH w/ Reflex to FT4 1.47 uIU/mL (0.47-4.68)
[2022-06-23 20:33] LABS: pH Urine UA 5.5 (4.5-8.0)
[2022-06-23 20:37] LABS: Amorphous Sediment Urine 1+; Bacteria Urine Many (>30); Calcium Oxalate Crystals Urine Many; Culture Indicated Urine Cult Not Indicated; RBC Urine 5-10/HPF (0-5/HPF); Squamous Epithelial Cell Urine 10-30 /HPF (0-5/HPF); WBC Urine 0-1/HPF (0-5/HPF)
[2022-06-24 16:11] LABS: Hemoglobin A1C% w Est Avg Glu 5.7 % (4.0-6.0)
[2022-07-01 18:14] LABS: Vitamin D 25 Hydroxy (D3) 73.1 ng/mL (30.0-100.0)
== END ==
PROVIDERS: PCP Physician Assistant Medical; Visit Provider Physician Assistant Medical
DX: D72.19 Other eosinophilia (principal); D72.829 Elevated white blood cell count, unspecified; N23 Unspecified renal colic; R74.8 Abnormal levels of other serum enzymes; R79.89 Other specified abnormal findings of blood chemistry; Z12.11 Encounter for screening for malignant neoplasm of colon; R29.898 Other symptoms and signs involving the musculoskeletal system; R73.9 Hyperglycemia, unspecified
CPT/HCPCS: 80053; 80061; 81001; 82306; 82977; 83036; 84443; 85025

== ENCOUNTER → 2022-07-01 10:12 | Outpatient (CLI) | payer OTHER, MEDICAID, SELFPAY ==
[2022-07-02 18:40] LABS: Appearance Urine UA CLEAR; Bilirubin Urine UA NEGATIVE (NEGATIVE); Color Urine UA YELLOW; Glucose Urine UA NEGATIVE (Negative); Ketones Urine UA 1+ (NEGATIVE); Leukocyte Esterase Urine UA NEGATIVE (NEGATIVE); Nitrite Urine UA NEGATIVE (Negative); Occult Blood Urine UA 1+ (Negative); Protein Urine UA NEGATIVE (Negative); Specific Gravity Urine UA 1.025 (1.000-1.035); Urobilinogen Urine UA 0.2 E.U./dL (0.2)
[2022-07-02 18:47] LABS: pH Urine UA 5.5 (4.5-8.0)
[2022-07-02 18:48] LABS: C-Reactive Protein Quant < 0.5 mg/dL (<1.0)
[2022-07-02 18:54] LABS: Creatinine Urine Random 133.1 mg/dL
[2022-07-02 18:57] LABS: Bacteria Urine None Seen; Calcium Oxalate Crystals Urine Few; Culture Indicated Urine Cult Not Indicated; RBC Urine None Seen (0-5/HPF); Squamous Epithelial Cell Urine 1-5 /HPF (0-5/HPF); WBC Urine 0-1/HPF (0-5/HPF)
[2022-07-02 18:59] LABS: Microalbumi Creatinin Ratio Ur 8.2 ug/mg CR (<30); Microalbumin Urine Random 1.1 mg/dL (0-1.6)
== END ==
PROVIDERS: PCP Physician Assistant Medical; Visit Provider Physician Assistant Medical
DX: G89.29 Other chronic pain (principal); M54.2 Cervicalgia; M54.9 Dorsalgia, unspecified; N23 Unspecified renal colic; R31.21 Asymptomatic microscopic hematuria
CPT/HCPCS: 81001; 82043; 82570; 85651; 86140

== ENCOUNTER → 2022-07-07 11:00 | Outpatient (CLI) | payer OTHER, MEDICAID, SELFPAY ==
[2022-07-12 22:08] LABS: Fecal Immunochemical Test Negative (Negative)
== END ==
PROVIDERS: PCP Physician Assistant Medical; Visit Provider Physician Assistant Medical
DX: D72.19 Other eosinophilia (principal); D72.829 Elevated white blood cell count, unspecified; N23 Unspecified renal colic; R74.8 Abnormal levels of other serum enzymes; R79.89 Other specified abnormal findings of blood chemistry; Z12.11 Encounter for screening for malignant neoplasm of colon
CPT/HCPCS: 82274

== ENCOUNTER → 2022-07-15 09:03 | Outpatient (CLI) | payer OTHER, MEDICAID, SELFPAY ==
[2022-07-15 20:10] LABS: Appearance Urine UA CLEAR; Bilirubin Urine UA NEGATIVE (NEGATIVE); Color Urine UA YELLOW; Glucose Urine UA NEGATIVE (Negative); Ketones Urine UA NEGATIVE (NEGATIVE); Leukocyte Esterase Urine UA NEGATIVE (NEGATIVE); Nitrite Urine UA NEGATIVE (Negative); Occult Blood Urine UA TRACE-LYSED (Negative); Protein Urine UA NEGATIVE (Negative); Specific Gravity Urine UA 1.015 (1.000-1.035); Urobilinogen Urine UA 0.2 E.U./dL (0.2)
[2022-07-15 20:17] LABS: Bacteria Urine Few (2-10); Culture Indicated Urine Specimen Cultured; RBC Urine 0-1/HPF (0-5/HPF); Squamous Epithelial Cell Urine 0-1 /HPF (0-5/HPF); WBC Urine 5-10/HPF (0-5/HPF)
== END ==
PROVIDERS: PCP Physician Assistant Medical; Visit Provider Physician Assistant Medical
DX: R31.9 Hematuria, unspecified (principal)
CPT/HCPCS: 81001; 87077; 87086

== ENCOUNTER → 2022-10-14 12:43 | Outpatient (CLI) | payer OTHER, MEDICAID, SELFPAY ==
[2022-10-14 20:20] LABS: Appearance Urine UA CLEAR; Bilirubin Urine UA NEGATIVE (NEGATIVE); Color Urine UA YELLOW; Glucose Urine UA NEGATIVE (Negative); Ketones Urine UA NEGATIVE (NEGATIVE); Leukocyte Esterase Urine UA NEGATIVE (NEGATIVE); Nitrite Urine UA NEGATIVE (Negative); Occult Blood Urine UA 1+ (Negative); Protein Urine UA TRACE (Negative); Specific Gravity Urine UA >=1.030 (1.000-1.035); Urobilinogen Urine UA 0.2 E.U./dL (0.2)
[2022-10-14 20:23] LABS: Bacteria Urine Occasional (0-1); Culture Indicated Urine Cult Not Indicated; RBC Urine 0-1/HPF (0-5/HPF); Squamous Epithelial Cell Urine 0-1 /HPF (0-5/HPF); Triple Phosphate Crystal Urine Occasional; WBC Urine 0-1/HPF (0-5/HPF)
== END ==
PROVIDERS: PCP Physician Assistant Medical; Visit Provider Physician Assistant Medical
DX: R31.21 Asymptomatic microscopic hematuria (principal)
CPT/HCPCS: 80305; 81001

== ENCOUNTER → 2023-02-07 15:16 | Outpatient (CLI) | payer OTHER, MEDICAID, SELFPAY ==
--- NOTE | 2023-02-07 15:17 | DI.US.S_ITS ---
PROCEDURE: US [facility] VENOUS LOW EXTREM BI INDICATIONS: BILATERAL LEG SWELLING TECHNIQUE: Real-time imaging, as well as color and pulse Doppler interrogation, were performed of the deep veins of both legs from the inguinal ligament to the popliteal fossa. COMPARISON: [facility], , [facility] VENOUS LOW EXTREM BI, 12/01/2021, 13:09. FINDINGS: Right: The common femoral, femoral and popliteal veins are normally compressible, and free of intraluminal thrombus. Color and pulse Doppler demonstrate normal phasic intravascular flow. There is normal augmentation response to distal compression maneuver. Left: The common femoral, femoral and popliteal veins are normally compressible, and free of intraluminal thrombus. Color and pulse Doppler demonstrate normal phasic intravascular flow. There is normal augmentation response to distal compression maneuver. Normal appearing lymph nodes with fatty [place] are visualized in the bilateral groins. IMPRESSION: 1. No deep vein thrombosis of the bilateral lower extremities. Dictated by: Mame Torres M.D. on 02/07/2023 at 15:54 Approved by: Mame Torres M.D. on 02/07/2023 at 16:09
== END ==
PROVIDERS: PCP Physician Assistant Medical; Referring Provider Physician Assistant Medical; Visit Provider Physician Assistant Medical
DX: R22.43 Localized swelling, mass and lump, lower limb, bilateral (principal); R29.898 Other symptoms and signs involving the musculoskeletal system
CPT/HCPCS: 93970

== ENCOUNTER → 2023-04-07 10:58 | Outpatient (CLI) | payer OTHER, MEDICAID, SELFPAY ==
[2023-04-07 19:40] LABS: Add Manual Diff / Slide Review NO; Basophils Absolute Auto 100 /uL (0-100); Eosinophils Absolute Auto 100 /uL (0-450); Eosinophils Percent Auto 1.3 % (2-4); Hematocrit 40.7 % (36-46); Hemoglobin 13.7 g/dL (12.0-16.0); Lymphocytes Absolute Auto 3100 /uL (1100-4500); Lymphocytes Percent Auto 41.8 % (25-40); Mean Corpuscular HGB Conc 33.7 % (30-36); Mean Corpuscular Hemoglobin 30.4 PG (26-34); Mean Corpuscular Volume 90.2 fL (80-100); Monocytes Absolute Auto 500 /uL (0-900); Monocytes Percent Auto 7.1 % (3-14); Neutrophils Absolute Auto 3700 /uL (1500-7000); Neutrophils Percent Auto 48.8 % (50-75); Platelet Count 255 X10^3/uL (150-400); Red Blood Cell Count 4.51 X10^6/uL (4.0-5.2); White Blood Cell Count 7.5 X10^3/uL (4.5-11.0)
[2023-04-07 19:46] LABS: Alanine Aminotransferase 24 IU/L (<35); Albumin 4.1 g/dL (3.5-5.0); Albumin Globulin Ratio 1.6 (1.0-2.8); Alkaline Phosphatase 79 U/L (38-126); Aspartate Aminotransferase 28 IU/L (14-36); BUN Creatinine Ratio 23.5 (6-22); Bilirubin Total 0.3 mg/dL (0.2-1.3); Blood Urea Nitrogen 16 mg/dL (7-17); C-Reactive Protein Quant 0.5 mg/dL (<1.0); Calcium 9.1 mg/dL (8.4-10.2); Carbon Dioxide 25 mmol/L (22-32); Chloride 106 mmol/L (98-107); Estimated Glomerular Filt Rate > 60 mL/min (>60); Globulin 2.6 g/dL (1.7-4.1); Glucose 91 mg/dL (70-100); HEMOLYSIS < 15 (0-50); Potassium 4.3 mmol/L (3.4-5.1); Sodium 137 mmol/L (137-145); Total Protein 6.7 g/dL (6.3-8.2)
[2023-04-07 20:01] LABS: TSH w/ Reflex to FT4 0.83 uIU/mL (0.47-4.68)
[2023-04-07 20:55] LABS: Erythrocyte Sedimentation Rate 9 MM/HR (0-20)
[2023-04-08 22:38] LABS: x Labcorp Estim. Avg Glu (eAG) 117 mg/dL (.); x Labcorp Hemoglobin A1c 5.7 % (4.8-5.6)
== END ==
PROVIDERS: PCP Physician Assistant Medical; Visit Provider Physician Assistant Medical
DX: G89.29 Other chronic pain; H53.2 Diplopia; M54.2 Cervicalgia; R51.9 Headache, unspecified; R73.9 Hyperglycemia, unspecified
CPT/HCPCS: 80053; 83036; 84443; 85025; 85651; 86140

== ENCOUNTER → 2023-06-08 09:38 | Outpatient (CLI) | payer OTHER, MEDICAID, SELFPAY ==
[2023-06-08 21:20] LABS: Alanine Aminotransferase 27 IU/L (<35); Albumin 4.2 g/dL (3.5-5.0); Albumin Globulin Ratio 1.4 (1.0-2.8); Alkaline Phosphatase 74 U/L (38-126); Aspartate Aminotransferase 30 IU/L (14-36); Bilirubin Total 0.4 mg/dL (0.2-1.3); Blood Urea Nitrogen 24 mg/dL (7-17); Calcium 9.3 mg/dL (8.4-10.2); Carbon Dioxide 25 mmol/L (22-32); Chloride 104 mmol/L (98-107); Cholesterol 256 mg/dL (140-199); Estimated Glomerular Filt Rate > 60 mL/min (>60); Glucose 98 mg/dL (70-100); HDL Cholesterol 67 mg/dL (40-60); HEMOLYSIS 17 (0-50); LDL Cholesterol Calculated 171 mg/dL (<100); Potassium 4.4 mmol/L (3.4-5.1); Sodium 136 mmol/L (137-145); Total Protein 7.2 g/dL (6.3-8.2); Triglycerides 91 mg/dL (35-150)
[2023-06-08 22:05] LABS: Creatinine Urine Random 109.4 mg/dL
[2023-06-08 22:11] LABS: Microalbumin Urine Random < 0.6 mg/dL (0-1.6)
[2023-06-09 22:58] LABS: x Labcorp Estim. Avg Glu (eAG) 120 mg/dL (.); x Labcorp Hemoglobin A1c 5.8 % (4.8-5.6)
== END ==
PROVIDERS: PCP Physician Assistant Medical; Visit Provider Physician Assistant Medical
DX: F17.200 Nicotine dependence, unspecified, uncomplicated (principal); R73.9 Hyperglycemia, unspecified; N23 Unspecified renal colic; R74.8 Abnormal levels of other serum enzymes
CPT/HCPCS: 80053; 80061; 82043; 82570; 83036

== ENCOUNTER → 2023-12-21 12:56 | Outpatient (CLI) | payer OTHER, MEDICAID, SELFPAY ==
[2023-12-21 19:11] LABS: Add Manual Diff / Slide Review NO; Basophils Absolute Auto 100 /uL (0-100); Basophils Percent Auto 0.8 % (0-2); Eosinophils Absolute Auto 100 /uL (0-450); Eosinophils Percent Auto 1.5 % (2-4); Hematocrit 39.3 % (36-46); Hemoglobin 13.3 g/dL (12.0-16.0); Lymphocytes Absolute Auto 2900 /uL (1100-4500); Lymphocytes Percent Auto 39.4 % (25-40); Mean Corpuscular HGB Conc 33.9 % (30-36); Mean Corpuscular Hemoglobin 30.5 PG (26-34); Mean Corpuscular Volume 90.1 fL (80-100); Monocytes Absolute Auto 500 /uL (0-900); Monocytes Percent Auto 6.4 % (3-14); Neutrophils Absolute Auto 3800 /uL (1500-7000); Neutrophils Percent Auto 51.9 % (50-75); Platelet Count 239 X10^3/uL (150-400); Red Blood Cell Count 4.36 X10^6/uL (4.0-5.2); Red Cell Distribution Width 13.5 % (11.6-14.8); White Blood Cell Count 7.3 X10^3/uL (4.5-11.0)
[2023-12-21 19:19] LABS: Alanine Aminotransferase 31 IU/L (<35); Albumin 4.2 g/dL (3.5-5.0); Albumin Globulin Ratio 1.4 (1.0-2.8); Alkaline Phosphatase 66 U/L (38-126); Aspartate Aminotransferase 61 IU/L (14-36); Bilirubin Total 0.5 mg/dL (0.2-1.3); Blood Urea Nitrogen 25 mg/dL (7-17); Calcium 9.5 mg/dL (8.4-10.2); Carbon Dioxide 29 mmol/L (22-32); Chloride 103 mmol/L (98-107); Estimated Glomerular Filt Rate > 60 mL/min (>60); Glucose 104 mg/dL (70-100); HEMOLYSIS 19 (0-50); Sodium 138 mmol/L (137-145); Total Protein 7.2 g/dL (6.3-8.2)
[2023-12-21 19:27] LABS: Hemoglobin A1C% w Est Avg Glu 5.4 % (4.0-6.0)
[2023-12-21 19:40] LABS: TSH w/ Reflex to FT4 1.87 uIU/mL (0.47-4.68)
== END ==
PROVIDERS: PCP Physician Assistant Medical; Visit Provider Physician Assistant Medical
DX: R00.2 Palpitations (principal); R73.9 Hyperglycemia, unspecified; H53.2 Diplopia; R79.89 Other specified abnormal findings of blood chemistry
CPT/HCPCS: 80053; 83036; 84443; 85025

== ENCOUNTER → 2024-02-13 13:49 | Outpatient (CLI) | payer OTHER, MEDICAID, SELFPAY ==
--- NOTE | 2024-02-13 13:53 | DI.RAD.S_ITS ---
PROCEDURE: XR CHEST 2V INDICATIONS: CHEST PAIN TECHNIQUE: 2 views of the chest were acquired. COMPARISON: [facility] ([facility]), CR, XR CHEST 2V, 07/01/2022, 10:10. FINDINGS: Surgical changes and devices: None. Lungs and pleura: Lungs are clear. No pleural effusions or pneumothorax. Mediastinum: Mediastinal contours are normal. Heart size is normal. Bones and chest wall: No suspicious bony abnormalities. Soft tissues appear unremarkable. IMPRESSION: Normal two view chest x-ray Approved by: Moo Gaona M.D. on 02/13/2024 at 19:04
== END ==
LOC: RAD 13:51
PROVIDERS: PCP Physician Assistant Medical; Referring Provider Internal Medicine Cardiovascular Disease; Visit Provider Internal Medicine Cardiovascular Disease
DX: I49.3 Ventricular premature depolarization (principal); R07.89 Other chest pain
CPT/HCPCS: 71046

== ENCOUNTER → 2024-03-14 09:19 | Outpatient (CLI) | payer OTHER, MEDICAID, SELFPAY ==
[2024-03-14 19:29] LABS: Add Manual Diff / Slide Review NO; Basophils Absolute Auto 0 /uL (0-100); Basophils Percent Auto 0.6 % (0-2); Eosinophils Absolute Auto 100 /uL (0-450); Eosinophils Percent Auto 1.7 % (2-4); Hemoglobin 13.5 g/dL (12.0-16.0); Lymphocytes Absolute Auto 2800 /uL (1100-4500); Lymphocytes Percent Auto 37.7 % (25-40); Mean Corpuscular HGB Conc 33.6 % (30-36); Mean Corpuscular Hemoglobin 30.2 PG (26-34); Mean Corpuscular Volume 89.7 fL (80-100); Monocytes Absolute Auto 500 /uL (0-900); Monocytes Percent Auto 7.3 % (3-14); Neutrophils Absolute Auto 3900 /uL (1500-7000); Neutrophils Percent Auto 52.7 % (50-75); Platelet Count 275 X10^3/uL (150-400); Red Blood Cell Count 4.46 X10^6/uL (4.0-5.2); Red Cell Distribution Width 13.8 % (11.6-14.8); White Blood Cell Count 7.4 X10^3/uL (4.5-11.0)
[2024-03-14 19:53] LABS: Alanine Aminotransferase 25 IU/L (<35); Albumin 4.5 g/dL (3.5-5.0); Albumin Globulin Ratio 1.8 (1.0-2.8); Alkaline Phosphatase 76 U/L (38-126); Aspartate Aminotransferase 28 IU/L (14-36); BUN Creatinine Ratio 26.3 (6-22); Bilirubin Total 0.5 mg/dL (0.2-1.3); Blood Urea Nitrogen 21 mg/dL (7-17); Calcium 9.7 mg/dL (8.4-10.2); Carbon Dioxide 28 mmol/L (22-32); Chloride 106 mmol/L (98-107); Cholesterol 232 mg/dL (140-199); Estimated Glomerular Filt Rate > 60 mL/min (>60); Globulin 2.5 g/dL (1.7-4.1); Glucose 98 mg/dL (70-100); HDL Cholesterol 71 mg/dL (40-60); HEMOLYSIS < 15 (0-50); LDL Cholesterol Calculated 145 mg/dL (<100); Potassium 4.4 mmol/L (3.4-5.1); Sodium 140 mmol/L (137-145); Triglycerides 80 mg/dL (35-150)
[2024-03-14 20:23] LABS: TSH w/ Reflex to FT4 2.54 uIU/mL (0.47-4.68)
[2024-03-14 20:56] LABS: Hemoglobin A1C% w Est Avg Glu 5.9 % (4.0-6.0)
== END ==
PROVIDERS: PCP Physician Assistant Medical; Visit Provider Physician Assistant Medical
DX: R00.2 Palpitations (principal); T50.Z95D Adverse effect of other vaccines and biological substances, subsequent encounter; R73.9 Hyperglycemia, unspecified; R74.8 Abnormal levels of other serum enzymes; F17.200 Nicotine dependence, unspecified, uncomplicated; Z13.6 Encounter for screening for cardiovascular disorders
CPT/HCPCS: 80053; 80061; 83036; 84443; 85025

== ENCOUNTER → 2024-03-31 12:27 | Outpatient (CLI) | payer OTHER, MEDICAID, SELFPAY ==
--- NOTE | 2024-03-31 12:28 | DI.CT.S_ITS ---
PROCEDURE: CT LUNG LOW DOSE SCREENING INDICATIONS: 40+ pack years TECHNIQUE: Noncontrast 2.0-2.5 mm thick sections acquired from the pulmonary apices to the posterior costophrenic angles. 7 mm thick axial MIP, and 5 mm coronal and sagittal reformats were then acquired. For radiation dose reduction, the following was used: automated exposure control, adjustment of mA and/or kV according to patient size. COMPARISON: None. FINDINGS: Image quality: Diagnostic. Lower Neck: No enlarged lymph nodes. Thyroid: No thyroid nodules which require sonographic follow up, per consensus guidelines. Axillae: No enlarged lymph nodes. Chest Wall: Unremarkable. Bones: Unremarkable. Lungs and Pleura: No pneumothorax or pleural effusions. No consolidation. 5 millimeter nodule along the right minor fissure seen on axial image 127. Five millimeter nodule along the right major fissure axial image 137. Heart: Heart size is normal. No pericardial effusion. Thoracic Vessels: The aorta and pulmonary arteries demonstrate normal size. Mediastinum and Radha: No enlarged lymph nodes. Esophagus: No wall thickening. No hiatal hernia. Upper Abdomen: Visualized upper abdomen solid organs and bowel loops appear normal. IMPRESSION: Small nodules likely intra fissural lymph nodes. LUNG-RADS 2; continued annual screening, if eligible. Clinically Significant Non-pulmonary Findings: None. Dictated by: Arsenio Chacon M.D. on 04/01/2024 at 8:29 Approved by: Arsenio Chacon M.D. on 04/01/2024 at 8:38
== END ==
LOC: CT 12:27
PROVIDERS: PCP Physician Assistant Medical; Referring Provider Physician Assistant Medical; Visit Provider Physician Assistant Medical
DX: Z12.2 Encounter for screening for malignant neoplasm of respiratory organs (principal); F17.210 Nicotine dependence, cigarettes, uncomplicated; R91.8 Other nonspecific abnormal finding of lung field
CPT/HCPCS: 71271

== ENCOUNTER → 2024-04-11 12:16 | Outpatient (CLI) | payer OTHER, MEDICAID, SELFPAY | PROVIDERS: PCP Physician Assistant Medical; Referring Provider Physician Assistant Medical; Visit Provider Physician Assistant Medical | DX: R00.2 Palpitations (principal); F17.200 Nicotine dependence, unspecified, uncomplicated; R07.9 Chest pain, unspecified; F17.210 Nicotine dependence, cigarettes, uncomplicated | CPT/HCPCS: 94010 ==

== ENCOUNTER → 2024-04-23 10:00 | Outpatient (CLI) | payer OTHER, MEDICAID, SELFPAY ==
--- NOTE | 2024-04-23 10:03 | DI.US.S_ITS ---
PROCEDURE: US ARTERIAL DUPLEX LE BI INDICATIONS: CLAUDICATION TECHNIQUE: Color and pulse Doppler interrogation was performed of both lower extremity arterial systems, with image documentation. COMPARISON: None. FINDINGS: Right lower extremity: Common femoral artery: 135 cm/sec, with triphasic flow. Deep femoral artery: 60 cm/sec, with biphasic flow. Proximal superficial femoral artery: 87 cm/sec, with triphasic flow. Mid superficial femoral artery: 107 cm/sec, with triphasic flow. Distal superficial femoral artery: 83 cm/sec, with biphasic flow. Popliteal artery: 51 cm/sec, with biphasic flow. Posterior tibial artery: 72 cm/sec, with biphasic flow. Anterior tibial artery/dorsalis pedis: Not well seen Paulson-scale imaging description: No significant atherosclerotic plaque Left lower extremity: Common femoral artery: 153 cm/sec, with triphasic flow. Deep femoral artery: 85 cm/sec, with biphasic flow. Proximal superficial femoral artery: 100 cm/sec, with triphasic flow. Mid superficial femoral artery: 110 cm/sec, with biphasic flow. Distal superficial femoral artery: 82 cm/sec, with biphasic flow. Popliteal artery: 51 cm/sec, with biphasic flow. Posterior tibial artery: 67 cm/sec, with biphasic flow. Anterior tibial artery/dorsalis pedis: 36 cm/sec, with biphasic flow. Paulson-scale imaging description: No significant atherosclerotic plaque IMPRESSION: Multiphasic waveforms of the bilateral lower extremity arterial vasculature with no velocity shift to suggest hemodynamically significant stenosis. Of note, the right DILAN/dorsalis pedis is not well seen. Dictated by: Manuel Dangelo M.D. on 04/23/2024 at 16:37 Approved by: Manuel Dangelo M.D. on 04/23/2024 at 16:39
== END ==
PROVIDERS: PCP Physician Assistant Medical; Referring Provider Physician Assistant Medical; Visit Provider Physician Assistant Medical
DX: M79.606 Pain in leg, unspecified (principal)
CPT/HCPCS: 93925

== ENCOUNTER → 2024-05-29 14:26 | Outpatient (CLI) | payer OTHER, MEDICAID, SELFPAY ==
[2024-05-29 21:02] LABS: Hematocrit 37.7 % (36-46); Hemoglobin 12.5 g/dL (12.0-16.0)
[2024-05-29 21:13] LABS: BUN Creatinine Ratio 28.4 (6-22); Blood Urea Nitrogen 21 mg/dL (7-17); Calcium 9.3 mg/dL (8.4-10.2); Carbon Dioxide 25 mmol/L (22-32); Chloride 108 mmol/L (98-107); Estimated Glomerular Filt Rate > 60 mL/min (>60); Glucose 95 mg/dL (70-100); HEMOLYSIS 15 (0-50); Potassium 4.6 mmol/L (3.4-5.1); Sodium 136 mmol/L (137-145)
[2024-05-29 22:25] LABS: Creatinine Urine Random 255.25 mg/dL
[2024-05-29 23:08] LABS: Protein (Total) Urine Random < 5 mg/dL (0-12); Protein Creatinine Ratio Urine 0.01 GRAM/24H
== END ==
PROVIDERS: PCP Physician Assistant Medical; Visit Provider Student in an Organized Health Care Education/Training Program
DX: N05.9 Unspecified nephritic syndrome with unspecified morphologic changes (principal); D64.9 Anemia, unspecified; R80.9 Proteinuria, unspecified
CPT/HCPCS: 80048; 82570; 84156; 85014; 85018

== ENCOUNTER 2024-08-09 09:28 | Day surgery (SDC) | payer OTHER, MEDICAID, SELFPAY ==
--- NOTE | 2024-08-09 | PATH_ITS ---
[facility] Accession Number: [id number] No. of containers..03 Tissue . 01 Material submitted: . PART A: duodenum - DUODENUM PART B: stomach - ANTRUM PART C: colon - DESCENDING POLYP . 01 Diagnosis: A. DUODENUM, BIOPSY: Duodenal mucosa with no diagnostic abnormality. Negative for active inflammation, features of sprue, dysplasia, or malignancy. . B. STOMACH, ANTRUM, BIOPSY: Antral mucosa with no diagnostic abnormality. Negative for Helicobacter by immunohistochemistry. Negative for intestinal metaplasia. Negative for dysplasia and malignancy. . C. DESCENDNG COLON, POLYP: Colonic mucosa with a small benign lymphoid aggregate. Additional levels were examined. Negative for dysplasia and malignancy. MRV 08/14/2024 1454 Local . 01 Electronically signed: . Shelly Kraus MD, Pathologist NPI- [id number] . 01 Gross description: . A. Received in formalin with two patient identifiers and duodenum, are two cuellar soft tissue fragments, 0.2 to 0.4 cm in greatest dimension. Submitted in A1. B. Received in formalin with two patient identifiers and antrum, are three cuellar soft tissue fragments, 0.2 to 0.3 cm in greatest dimension. Submitted in B1. C. Received in formalin with two patient identifiers and descending colon polyp, are two cuellar soft tissue fragments, 0.2 to 0.3 cm in greatest dimension. Submitted in C1. ([id number]) /MRV 08/12/2024 1202 Local . 01 Microscopic: . B. An immunohistochemical stain was performed to evaluate for Helicobacter organisms and is negative. The control stain showed appropriate reactivity. . * This test was developed and its performance characteristics determined by [employer]. It has not been cleared or approved by the U.S. Food and Drug Administration. The FDA has determined that such clearance or approval is not necessary. This test is used for clinical purposes. It should not be regarded as investigational or for research. . 01 Pathologist provided ICD-10: R10.9 . 01 CPT . 229525, 594518, 091703, [id number] Specimen Comment: A courtesy copy of this report has been sent to [phone] Performed at: [address] [id number] MD Mike Castanon MD Phone: [phone]
[2024-08-09] MEDS: LACTATED RINGERS 1,000 ML 100 ML IV (09:42)
--- NOTE | 2024-08-09 09:44 | P.HP_ITS ---
History of Present Illness History of Present Illness Date Patient Seen: 08/09/24 Time Patient Seen: 09:44 Chief complaint: EGD/Colonoscopy Narrative: Karon is a 54-year-old woman with multiple complaints. See the office note from December for details. [facility] Medical History (Updated 05/15/24 @ 09:34 by Shelly Wallace PA-C) Cervical cancer screening Well woman exam with routine gynecological exam Other nerve root and plexus disorders Nonspecific chest pain Rib pain Breast cancer screening PTSD (post-traumatic stress disorder) Foot pain Chicken pox (~1971) Herpes Chronic pain skilled nursing (current) use of opiate analgesic Cyriax's syndrome Surgical History Anesthesia Skin cancer of arm (~1980) H/O removal of cyst (~1978) Family History Other Adopted Social History Smoking Status: Current every day smoker Meds Home Medications and Allergies Home Medications Medication Instructions Recorded Confirmed Type Tumeric 300 mg PO BID 08/13/19 03/21/24 History multivitamin (Daily Multi-Vitamin 1 tab PO DAILY 08/13/19 03/21/24 History tablet) naloxone 4 mg/actuation nasal spray 1 spray intranasal Q2M accidental 10/05/22 03/21/24 Rx overdose #2 ea lidocaine 5 % topical patch 1 patch topical DAILY #30 ea 01/19/23 03/21/24 Rx oxycodone 5 mg tablet 5 mg PO QID PRN chronic pain #112 05/15/24 05/15/24 Rx tabs baclofen 10 mg tablet See Rx Instructions .Route 05/28/24 Rx .COMPLEX #180 tabs Allergies Allergy/AdvReac Type Severity Reaction Status Date / Time Sulfa (Sulfonamide Allergy Mild hives Verified 08/09/24 09:34 Antibiotics) [SULFA (SULFONAMIDE ANTIBIOTICS)] carisoprodol [From Soma] Allergy Unknown Verified 08/09/24 09:34 duloxetine AdvReac Unknown LIGHTHEADED Verified 08/09/24 09:34 gabapentin AdvReac Unknown NAUSEA, Verified 08/09/24 09:34 SWELLING, AND DIZZINESS sertraline [From Zoloft] AdvReac Unknown NOT CLEAR Verified 08/09/24 09:34 HEADED Exam Const General: No acute distress Resp Effort & Inspection: normal respiratory effort Assessment & Plan Assessment and plan (1) GERD (gastroesophageal reflux disease): Qualifiers: Esophagitis presence: esophagitis presence not specified Qualified Code(s): K21.9 - Gastro-esophageal reflux disease without esophagitis Status: Acute (2) Change in bowel habits: Status: Acute Plan EGD and colonoscopy Time-Based Coding :: [TOTAL MINUTES] spent with patient and on the chart (including review of chart, obtaining history, exam, reviewing outside data, placing orders, documenting exam and treatment plan, and counseling patient) on [DATE].
[2024-08-09 09:50] VITALS: BP 124/82; PULSE 114; RESP 16; TEMP 36.3; O2SAT 99
[2024-08-09 10:23] VITALS: BP 118/67; PULSE 90; RESP 23; TEMP 36.5; O2SAT 97
[2024-08-09 10:26] VITALS: BP 109/74; PULSE 93; RESP 18; O2SAT 96
--- NOTE | 2024-08-09 10:27 | PM.OP.EC ---
Operative Date/Time/Diagnoses Date of procedure: 08/09/24 Time of procedure: 10:27 Pre-op diagnosis: Change in bowel function Post-op diagnosis: same Procedure & Clinicians Study performed: EGD and colonoscopy Same procedure as scheduled: Yes Surgeon: Moo Casey Procedure Notes Procedure in detail: Surgeon: Moo Casey MD Anesthesia: Arielle Cullen CRNA Procedure in detail: A timeout was performed. A bite blocked was placed and monitors were attached to the patient. The patient was positioned in the left lateral decubitus position. Sedation was administered. Once the patient was sedated the endoscope was inserted through the bite block and passed through the esophagus and stomach and into the duodenum. No abnormalities were identified. Random biopsies were taken with cold forceps from the duodenal mucosa. We then withdrew the scope into the stomach. No abnormalities were identified. Random biopsies were taken from the antral mucosa with cold forceps. The endoscope was retroflexed and no abnormalities were seen. The endoscope was straightned and withdrawn into the esophagus. No abnormalities were seen in the esophagus. EGD findings: Normal EGD Next we repositioned the patient for a colonoscopy. A digital rectal exam was performed and was normal. The colonoscope was inserted and advanced to the cecum. The appendiceal orifice was identified and photographed. The scope was slowly withdrawn over greater than 6 minutes. No abnormalities were identified. We did take some random biopsies of the colonic mucosa in the descending colon with cold forceps. The scope was retroflexed in the rectum and no other abnormalities were seen. Colonoscopy findings: Normal colon Total procedural EBL: 5 mL Scope withdrawal time: 7 minutes Sedation minutes: 21 minutes Post-procedure Recommendations: Colonscopy in 10 years Disposition: PACU
[2024-08-09 10:33] VITALS: BP 102/63; PULSE 80; RESP 15; TEMP 36.2; O2SAT 96
== END 2024-08-09 10:47 | disposition home or self-care (01) ==
PROVIDERS: PCP Physician Assistant Medical; Referring Provider Surgery; Visit Provider Surgery
PROC: 0DJ08ZZ Inspection of Upper Intestinal Tract, Via Natural or Artificial Opening Endoscopic (ICD-10-PCS; CPT 45380; principal; 2024-08-09 10:30)
PROC: 0DJD8ZZ Inspection of Lower Intestinal Tract, Via Natural or Artificial Opening Endoscopic (ICD-10-PCS; CPT 45378; 2024-08-09 10:30)
DX: R19.4 Change in bowel habit (principal)
CPT/HCPCS: 45380; 43239; J2704

== ENCOUNTER → 2024-09-12 09:52 | Outpatient (CLI) | payer OTHER, MEDICAID, SELFPAY | PROVIDERS: Family Provider Physician Assistant Medical; PCP Physician Assistant Medical; Referring Provider Physician Assistant Medical; Visit Provider Physician Assistant Medical | DX: R29.898 Other symptoms and signs involving the musculoskeletal system (principal); G58.8 Other specified mononeuropathies | CPT/HCPCS: 95886; 95911 ==

== ENCOUNTER → 2025-05-16 13:30 | Outpatient (CLI) | payer OTHER, SELFPAY ==
[2025-05-16 20:59] LABS: Add Manual Diff / Slide Review NO; Hematocrit 39.9 % (36-46); Hemoglobin 13.6 g/dL (12.0-16.0); Lymphocytes Absolute Auto 3000 /uL (1100-4500); Mean Corpuscular HGB Conc 34.1 % (30-36); Mean Corpuscular Hemoglobin 30.5 PG (26-34); Mean Corpuscular Volume 89.3 fL (80-100); Platelet Count 301 X10^3/uL (150-400)
[2025-05-16 21:05] LABS: Alanine Aminotransferase 24 IU/L (<35); Albumin 4.4 g/dL (3.5-5.0); Albumin Globulin Ratio 1.6 (1.0-2.8); Alkaline Phosphatase 77 U/L (38-126); Blood Urea Nitrogen 22 mg/dL (7-17); Calcium 9.5 mg/dL (8.4-10.2); Carbon Dioxide 25 mmol/L (22-32); Chloride 102 mmol/L (98-107); Cholesterol 236 mg/dL (140-199); Estimated Glomerular Filt Rate > 60 mL/min (>60); Globulin 2.7 g/dL (1.7-4.1); Glucose 93 mg/dL (70-99); HDL Cholesterol 63 mg/dL (40-60); HEMOLYSIS < 15 (0-50); Potassium 4.6 mmol/L (3.4-5.1); Sodium 136 mmol/L (137-145); Total Protein 7.1 g/dL (6.3-8.2); Triglycerides 88 mg/dL (35-150)
[2025-05-16 21:13] LABS: Hemoglobin A1C% w Est Avg Glu 5.4 % (4.0-6.0)
[2025-05-16 21:20] LABS: Vitamin D 25 Hydroxy (D3) 28.3 ng/mL (30.0-100.0)
[2025-05-16 21:38] LABS: TSH w/ Reflex to FT4 1.69 uIU/mL (0.47-4.68)
== END ==
PROVIDERS: Family Provider Physician Assistant Medical; PCP Physician Assistant Medical; Visit Provider Physician Assistant Medical
DX: Z13.6 Encounter for screening for cardiovascular disorders (principal); E88.810 Metabolic syndrome; R73.9 Hyperglycemia, unspecified; G58.8 Other specified mononeuropathies; R79.89 Other specified abnormal findings of blood chemistry; M54.6 Pain in thoracic spine; G89.29 Other chronic pain; M94.0 Chondrocostal junction syndrome [Tietze]; M99.08 Segmental and somatic dysfunction of rib cage; M47.24 Other spondylosis with radiculopathy, thoracic region; M47.22 Other spondylosis with radiculopathy, cervical region; R74.8 Abnormal levels of other serum enzymes; R29.898 Other symptoms and signs involving the musculoskeletal system; Z79.891 Long term (current) use of opiate analgesic
CPT/HCPCS: 80053; 80061; 82306; 83036; 84443; 85025; 85651; 86038; 86140; 86430